=== PATIENT | female | born 1945 | race Caucasian/White ===

== ENCOUNTER 2018-06-20 13:46 | Outpatient (CLI) | payer MEDICARE, BC ==
--- NOTE | 2018-06-20 15:22 | BD ---
BONE DENSITOMETRY USING DEXA: Date: 06/20/18 HISTORY: Postmenopausal screening for osteoporosis. FINDINGS: Lumbar Spine: BMD (g/cm2) L1 0.920 T-Score: -0.6 Z-Score: 1.3 L2 0.938 T-Score: -0.8 Z-Score: 1.4 L3 0.960 T-Score: -1.1 Z-Score: 1.2 L4 0.805 T-Score: -2.3 Z-Score: 0.1 L1-L4 0.905 T-Score: -1.3 Z-Score: 0.9 Femoral Neck: 0.657 T-Score: -1.7 Z-Score: 0.2 Total Femur: 0.800 T-Score: -1.2 Z-Score: 0.5 There has been interval improvement of 0.1% in the bone mineral density of the lumbar spine and a red uction of 8.6% in the bone mineral density of the proximal femur since 05/10/15. The 10 year fracture risk for a major osteoporotic fracture is 17% and for a hip fracture is 2.9%. IMPRESSION: Osteopenia. POS: [facility]
== END 2018-06-20 13:47 | disposition home or self-care (01) ==
LOC: BICMAMMO 13:46
PROVIDERS: ATTEND Family Medicine
DX: Z12.31 Encounter for screening mammogram for malignant neoplasm of breast (principal); Z13.820 Encounter for screening for osteoporosis; Z78.0 Asymptomatic menopausal state; M85.89 Other specified disorders of bone density and structure, multiple sites; Z98.82 Breast implant status
CPT/HCPCS: 77063; 77067; 77080

== ENCOUNTER 2021-08-31 13:11 | Outpatient (CLI) | payer MEDICARE, BC | END 2021-08-31 13:12 | disposition home or self-care (01) | LOC: BICMAMMO 13:11 | PROVIDERS: ATTEND Family Medicine | DX: Z12.31 Encounter for screening mammogram for malignant neoplasm of breast (principal); Z13.820 Encounter for screening for osteoporosis; Z98.82 Breast implant status; M85.89 Other specified disorders of bone density and structure, multiple sites | CPT/HCPCS: 77063; 77067; 77080 ==

== ENCOUNTER 2023-11-01 10:01 | Outpatient (CLI) | payer MEDICARE, BC | END 2023-11-01 10:02 | disposition home or self-care (01) | LOC: BICMAMMO 10:01 | PROVIDERS: ATTEND Family Medicine | DX: Z12.31 Encounter for screening mammogram for malignant neoplasm of breast (principal); Z13.820 Encounter for screening for osteoporosis; M85.851 Other specified disorders of bone density and structure, right thigh; M85.852 Other specified disorders of bone density and structure, left thigh; Z98.82 Breast implant status; Z78.0 Asymptomatic menopausal state | CPT/HCPCS: 77063; 77067; 77080 ==